=== PATIENT | male | born 1985 | race Caucasian/White ===

== ENCOUNTER 2018-04-03 09:55 | Emergency (ER) | payer OTHER ==
--- OUTSIDE RECORDS SUMMARY | 2018-04-03 10:00 | XMS REPORT | Continuity of Care Document ---
:1985 External Reference #:[id number] Author Name Aaliyah Alas Care Team Providers Name Role Phone Patient's Choice Primary Care Physician Unavailable Payers Date Identification Numbers Payment Provider Subscriber Policy Number: [id number] Amos Crum PayID: [id number] [address] [place] [address] Effective: 2008 Policy Number: [id number] Amos Crum Expires: 2014 Group Name: [id number] [address] PayID: [id number] [place] [address] Onset: 2008 Policy Number: [id number] Oly Crum PayID: [id number] [address] [place] [address] Group Name: No-Fault Oly Crum [address] [place] [address] Advance Directives Description No Information Available Problems Date Description Provider Status Onset: 01/17/2018 Localized, secondary osteoarthritis of Britton Taylor MD Active the shoulder region Onset: 01/17/2018 Injury of shoulder region Britton Taylor MD Active Onset: 01/17/2018 Disorder of shoulder Britton Taylor MD Active Onset: 10/26/2014 Cervical spondylosis without myelopathy Ubaldo Card M.D. Active Onset: 07/14/2014 Strain of rotator cuff capsule Jayjay Carmona M.D. Active Family History Date Family Member(s) Observation Comments General Diabetes General Heart Disease General Cancer General Stroke Father Diabetes Father Hypertension Father Stroke Mother Diabetes Mother Hypertension Mother Stroke Social History Type Date Description Comments Sex Unknown Lives With single and lives with his girl friend. 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 ETOH Use Rarely consumes alcohol Tobacco Use Start: Unknown Heavy tobacco smoker (more than 10 cigarettes/day) Smoking Status Reviewed: 03/26/18 Heavy tobacco smoker (more than 10 cigarettes/day) Exercise Type/Frequency Does not exercise Allergies, Adverse Reactions, Alerts Date Description Reaction Status Severity Comments 04/09/2009 Aspirin n/v Active 08/21/2014 Penicillin Active Medications Medication Date Status Form Strength Qnty SIG Indications Ordering Provider Medrol 03/26/ Active TBPK 4mg 21unit take as M75.42 Zaneb 2019 s directed by MD Claudia packaging Chantix 03/26/ Active Tablets 0.5mg X 11 53tabs take as M75.42 Zaneb Starting 2019 & 1 mg X directed MD Claudia Month Abdiel 42 No Active 03/12/ Hx Unknown Medications 2018 - 2018 No Active 01/17/ Hx Unknown Medications 2017 - 2017 Diclofenac 01/17/ Hx Tablets DR 75mg 60tabs take 1 S46.102A Zaneb Sodium 2017 - tablet MD Claudia 03/11/ twice a day 2018 with food as needed for pain Neurontin 11/03/ Hx Capsules 300mg 40caps 1 by mouth Jayjay 2014 - every night Mathew, 01/16/ at bedtime M.D. 2017 Tramadol HCL 08/21/ Hx Tablets 50mg 60tabs 1-2 tabs by Jayjay 2014 - mouth q4-6 Mathew, 01/16/ hours as M.D. 2017 needed pain Meloxicam 07/14/ Hx Tablets 7.5mg 60tabs 1 by mouth Jayjay 2014 - every day, Mathew, 10/26/ june take M.D. 2014 second tab if needed Robaxin-750 03/19/ Hx Tablets 750mg 40tabs 1-2 q8h Miguel Angel Henry 2008 - Zupruk, 04/09/ M.D. 2009 None / Hx Unknown 0000 - 2014 Medications Administered in Office Medication Date Status Form Strength Qnty SIG Indications Ordering Provider Triamcinolone 01/17/ Administered Injection Zaneb (Kenalog) 2017 MD Claudia Depomedrol 40MG 07/22/ Administered Injection Freda 2014 ANDREW Mike Immunizations Description No Information Available Vital Signs Date Vital Result Comment 03/26/2018 9:42am Height 65 inches 5'5" Weight 162.00 lb BP Systolic 118 mmHg BP Diastolic 62 mmHg Respiratory Rate 18 /min Pain Level 8 BMI (Body Mass Index) 27.0 kg/m2 03/12/2018 8:08am Height 65 inches 5'5" Heart Rate 72 /min BP Systolic 118 mmHg BP Diastolic 88 mmHg Body Temperature 97.6 F Pain Level 8 01/17/2018 9:35am Height 65 inches 5'5" Weight 162.00 lb Heart Rate 88 /min BP Systolic Sitting 128 mmHg BP Diastolic Sitting 88 mmHg Pain Level 7 BMI (Body Mass Index) 27.0 kg/m2 11/03/2014 1:58pm Height 66 inches 5'6" Weight 157.00 lb Pain Level 7 constant BMI (Body Mass Index) 25.3 kg/m2 10/26/2014 10:19am Height 66 inches 5'6" Weight 157.00 lb Heart Rate 66 /min BP Systolic Sitting 110 mmHg BP Diastolic Sitting 70 mmHg Pain Level 8 neck/l shoulder BMI (Body Mass Index) 25.3 kg/m2 10/14/2014 2:30pm Height 66 inches 5'6" Weight 175.00 lb Pain Level 6 BMI (Body Mass Index) 28.2 kg/m2 08/21/2014 10:10am Height 66 inches 5'6" Weight 175.00 lb Pain Level 6 BMI (Body Mass Index) 28.2 kg/m2 07/22/2014 4:20pm Height 66 inches 5'6" Weight 175.00 lb Pain Level 6 BMI (Body Mass Index) 28.2 kg/m2 07/14/2014 2:54pm Height 66 inches 5'6" Weight 175.00 lb Heart Rate 80 /min BP Systolic Sitting 120 mmHg BP Diastolic Sitting 78 mmHg Pain Level 6 BMI (Body Mass Index) 28.2 kg/m2 04/09/2009 8:36am Height 66 inches 5'6" Weight 165.00 lb Heart Rate 82 /min BP Systolic Sitting 110 mmHg BP Diastolic Sitting 70 mmHg BMI (Body Mass Index) 26.6 kg/m2 Results Test Date Facility Test Result H/L Range Note CBC With 06/14/2009 [facility] White Blood 8.7 CUMM 4.8-10.8 Electronic Diff [address] [place] [address] [phone] Red Cell Count 5.56 CUMM 4.6-6.2 Hemoglobin 17.7 g/dL 14.0-18.0 Hematocrit 50 % 42-52 Mean Corpuscular Volume 90 um3 80-94 Mean Corpuscular Hemoglob 32 pg High 27-31 Mean Corpuscular HGB Cone 35 g/dL 32-36 Redcell Distribution WDTH 13 % 10.5-15 Platelet Count 228 CUMM 150-450 Mean Platelet Volume 9.5 um3 7.4-10.4 Gran % 50.2 % 38-83 Lymph % 43.6 % 25-47 Mononuclear % 5.1 % 1-9 Eosinophil % 0.7 % 0-6 Basophil % 0.4 % 0-2 Abs Lymphs 3.8 1.0-4.8 Abs Mononuclear 0.4 0-0.8 Absolute Neutrophil Count 4.4 1.5-7.7 Abs Eosinophils 0.1 0-0.6 Abs Basophils 0 0-0.2 Comp Metabolic Panel 06/14/2009 [facility] Sodium 135 mmol/L 135-[address] [place] [address] [phone] Potassium 4.2 mmol/L 3.5-5.0 Chloride 103 mmol/L 101-111 Co2 (Carbon Dioxide) 26.0 mmol/L 22-32 Anion Gap 6.0 mmol/L 2-11 1 Glucose 61 mg/dL Low 70-100 2 BUN 11 mg/dL 6-24 Creatinine 0.90 mg/dL 0.50-1.40 One Over Creatinine 1.10 BUN/Creatinine Ratio 12.2 8-20 Calcium 9.7 mg/dL 8.1-9.9 3 Total Protein 7.0 GM/DL 6.2-8.1 Albumin 4.5 GM/DL 3.6-5.4 Globulin 2.5 GM/DL 2-4 Albumin/Globulin Ratio 1.8 1-3 Bilirubin Total 0.7 mg/dL 0.4-1.5 4 Alkaline Phosphatase 75 U/L 39-117 Alt (SGPT) 53 U/L 17-63 Ast (Sgot) 33 U/L 12-42 eGFR Non- 110.2 > 60 eGFR 133.3 > 60 5 Laboratory test 06/14/2009 [facility] Lipase 29 U/L 22-[address] [place] [address] [phone] CBC With 04/09/2009 [facility] White Blood 9.5 CUMM 4.8-10.8 Electronic Diff [address] [place] [address] [phone] Red Cell Count 5.65 CUMM 4.6-6.2 Hemoglobin 17.8 g/dL 14.0-18.0 Hematocrit 51 % 42-52 Mean Corpuscular Volume 91 um3 80-94 Mean Corpuscular Hemoglob 31 pg 27-31 Mean Corpuscular HGB Cone 35 g/dL 32-36 Redcell Distribution WDTH 13 % 10.5-15 Platelet Count 230 CUMM 150-450 Mean Platelet Volume 9.2 um3 7.4-10.4 Gran % 57.5 % 38-83 Lymph % 35.3 % 25-47 Mononuclear % 5.9 % 1-9 Eosinophil % 0.9 % 0-6 Basophil % 0.4 % 0-2 Abs Lymphs 3.4 1.0-4.8 Abs Mononuclear 0.6 0-0.8 Absolute Neutrophil Count 5.5 1.5-7.7 Abs Eosinophils 0.1 0-0.6 Abs Basophils 0 0-0.2 Comp Metabolic Panel 04/09/2009 [facility] Sodium 138 mmol/L 135-[address] [place] [address] [phone] Potassium 4.7 mmol/L 3.5-5.0 Chloride 104 mmol/L 101-111 Co2 (Carbon Dioxide) 28.0 mmol/L 22-32 Anion Gap 6.0 mmol/L 2-11 6 Glucose 80 mg/dL 70-100 7 BUN 8 mg/dL 6-24 Creatinine 1.20 mg/dL 0.50-1.40 One Over Creatinine 0.80 BUN/Creatinine Ratio 6.7 Low 8-20 Calcium 9.7 mg/dL 8.1-9.9 8 Total Protein 7.2 GM/DL 6.2-8.1 Albumin 4.2 GM/DL 3.6-5.4 Globulin 3.0 GM/DL 2-4 Albumin/Globulin Ratio 1.4 1-3 Bilirubin Total 0.7 mg/dL 0.4-1.5 9 Alkaline Phosphatase 87 U/L 39-117 Alt (SGPT) 83 U/L High 17-63 Ast (Sgot) 37 U/L 12-42 eGFR Non- 79.1 > 60 eGFR 95.7 > 60 10 Urinalysis 04/09/2009 [facility] Ua Color YELLOW Yellow [address] [place] [address] [phone] Appearance-Urine CLEAR Clear Specific [place]-Ur 1.019 1.010-1.030 Esterase-Urine NEGATIVE Negative Nitrite NEGATIVE Negative Iztcrcruuray-Th-SDB NEGATIVE Negative Protein-Urine NEGATIVE Negative PH-Urine 6.0 5-9 Blood-Urine NEGATIVE Negative Ketones-Urine NEGATIVE Negative Bilirubin-Ur NEGATIVE Negative Glucose-Urine NEGATIVE Negative Laboratory test 04/09/2009 [facility] Cholesterol 192 mg/dL Less Than [address] [place] [address] [phone] 1 Anion gap measurement may be of limited value in the presence of any alkalosis, especially in a combined acid base disorder. . 2 Note change in reference range as of 09/26/07. The change was based on recommendations from the [place] [employer]. 3 Please note change in reference range effective 07 . 4 A metabolite of Naproxen, O-desmethylnaproxen, has been shown to interfere with the Jendrassik-Lynn method for measuring total bilirubin. Samples from patients who have taken Naproxen have shown spurious elevation in total bilirubin levels. 5 Because ethnic data is not always readily available, this report includes an eGFR for both -Americans and non- Americans. The National Kidney Disease Education Program (NKDEP) does not endorse the use of the MDRD equation for patients that are not between the ages of 18 and 70, are , have extremes of body size, muscle mass, or nutritional status, or are non- or non-. According to the National Kidney Foundation, irrespective of diagnosis, the stage of the disease is based on the level of kidney function: Stage Description GFR(mL/min/1.73 m(2)) 1 Kidney damage with normal or decreased GFR 90 2 Kidney damage with mild decrease in GFR 60-89 3 Moderate decrease in GFR 30-59 4 Severe decrease in GFR 15-29 5 Kidney failure <15 (or dialysis) 6 Anion gap measurement may be of limited value in the presence of any alkalosis, especially in a combined acid base disorder. . 7 Note change in reference range as of 09/26/07. The change was based on recommendations from the [place] [employer]. 8 Please note change in reference range effective 07 . 9 A metabolite of Naproxen, O-desmethylnaproxen, has been shown to interfere with the Jendrassik-[place] method for measuring total bilirubin. Samples from patients who have taken Naproxen have shown spurious elevation in total bilirubin levels. 10 Because ethnic data is not always readily available, this report includes an eGFR for both -Americans and non- Americans. The National Kidney Disease Education Program (NKDEP) does not endorse the use of the MDRD equation for patients that are not between the ages of 18 and 70, are , have extremes of body size, muscle mass, or nutritional status, or are non- or non-. According to the National Kidney Foundation, irrespective of diagnosis, the stage of the disease is based on the level of kidney function: Stage Description GFR(mL/min/1.73 m(2)) 1 Kidney damage with normal or decreased GFR 90 2 Kidney damage with mild decrease in GFR 60-89 3 Moderate decrease in GFR 30-59 4 Severe decrease in GFR 15-29 5 Kidney failure <15 (or dialysis) 11 CHOLESTEROL INTERPRETATION: Desirable: Less than 200 MG/DL Borderline-High Risk: 200-239 MG/DL High-Risk: 240 MG/DL and over Procedures Date Code Description Status 01/17/2018 Inject/Drain Joint/Bursa Major W/O US Completed 07/22/2014 Inject/Drain Joint/Bursa Major W/O US Completed 05/12/2008 22191 Visual funct screen test, automated Completed 05/12/2008 56045 Pure Tone-Air Condition Only Completed Encounters Type Date Location Provider Dx Diagnosis Office Visit 03/12/2018 Orthopedic Britton Taylor MD M75.42 Impingement 8:00a [facility] syndrome of left shoulder M47.812 Spondylosis w/o myelopathy or radiculopathy, cervical region S46.102A Unsp injury of musc/fasc/tend long hd bicep, left arm, init M19.212 Secondary osteoarthritis, left shoulder Office Visit 01/17/2018 Orthopedic Britton Taylor, M47.812 Spondylosis w/o 9:00a [facility] myelopathy or [facility] radiculopathy, cervical region M75.42 Impingement syndrome of left shoulder S46.102A Unsp injury of musc/fasc/tend long hd bicep, left arm, init M19.212 Secondary osteoarthritis, left shoulder Office Visit 11/03/2014 Orthopedic Freda M47.812 Spondylosis w/o 2:00p [facility] Of ANDREW Mike myelopathy or C.M.AJem radiculopathy, cervical region M25.512 Pain in left shoulder Office Visit 10/26/2014 Neurosurgery Ubaldo M47.812 Spondylosis w/o 10:30a Services Of Adam Card M.D. myelopathy or radiculopathy, cervical region Office Visit 10/14/2014 Orthopedic Freda 719.41 Pain Joint Shoulder 2:30p [facility] ANDREW Mike Region [facility] 722.6 Intervertebral Disc Degeneration Unspec Site Office Visit 08/21/2014 10:15a Orthopedic Freda 719.41 Pain Joint [facility] ANDREW Mike Shoulder Region [facility] 727.3 Bursitis Other 723.0 Stenosis Spinal Cervical Region Office Visit 07/22/2014 4:30p Orthopedic Freda 727.3 Bursitis Other Services Of C.MJemAANDREW Rosenthal 726.19 Shoulder Disorders Other Spec 715.11 Osteoarthrosis Localized Prim Shoulder Region Office Visit 07/14/2014 3:00p Orthopedic Jayjay Carmona, 840.4 Sprains & Services Of Arianne Strains Rotator C.M.AJem Cuff (Capsule) 719.41 Pain Joint Shoulder Region Office Visit 04/09/2009 8:30a DO Not Use [facility] Loc Massey, 790.6 Abnormal Blood AT Steve Acuña Chemistry Other 724.5 Backache Unspec Plan of Treatment Future Appointment(s):04/03/2018 2:20 pm - Ubaldo Card M.D. at [facility]surgery [facility]05/07/2018 9:00 am - Britton Taylor MD at [facility]04/03/2018 11:00 am - Jb Flores M.D. at [facility]ology [facility]03/26/2018 - Britton Taylor, MDM75.42 Impingement syndrome of left shoulderNew Medication:Medrol 4 mg - take as directed by packagingChantix Starting Month Abdiel 0.5 mg X 11 & 1 mg X 42 - take as directedFollow up:Follow up: 6 weeks pls helppt make appt with family medicine or IM to establish careM47.812 Spondylosis without myelopathy or radiculopathy, cervical reS46.102A Unspecified injury of muscle, fascia and tendon of long head
--- OUTSIDE RECORDS SUMMARY | 2018-04-03 10:00 | XMS REPORT | Continuity of Care Document ---
:1985 External Reference #:[id number] Author Name Robyn Armenta Care Team Providers Name Role Phone Patient's Choice Primary Care Physician Unavailable Payers Type Date Identification Numbers Payment Provider Subscriber Policy Number: [id number] Amos Crum PayID: [id number] [address] [place] [address] Effective: 2008 Policy Number: [id number] Amos Crum Expires: 2014 Group Name: [id number] [address] PayID: [id number] [place] [address] Onset: 2008 Policy Number: [id number] Oly Crum PayID: [id number] [address] [place] [address] Group Name: No-Fault Oly Crum [address] [place] [address] Advance Directives Description No Information Available Problems [...] M.D. Active Family History Date Family Member(s) Problem(s) Comments General Diabetes General Heart Disease General Cancer General Stroke Father Diabetes Father Hypertension Father Stroke Mother Diabetes Mother Hypertension Mother Stroke Social History Type Date Description Comments Sex Unknown Lives With single and lives with his girl friend. 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 ETOH Use Rarely consumes alcohol Tobacco Use Start: Unknown Heavy tobacco smoker (more than 10 cigarettes/day) Smoking Status Reviewed: 03/12/18 Heavy tobacco smoker (more than 10 cigarettes/day) Exercise Type/Frequency Does not exercise Allergies, Adverse Reactions, Alerts Date Description Reaction Status Severity Comments 04/09/2009 Aspirin n/v Active 08/21/2014 Penicillin Active Medications Medication Date Status Form Strength Qnty SIG Indications Ordering Provider No Active Active Unknown Medications 019 No Active Hx Unknown Medications 018 - [address] 75mg 60tabs take 1 S46.102A Zaneb Sodium 018 - tablet MD Claudia twice a 019 day with food as needed for pain Neurontin Hx Capsules 300mg 40caps 1 by Jayjay 015 - mouth Mathew, every M.D. 018 night at bedtime Tramadol HCL Hx Tablets 50mg 60tabs 1-2 tabs Jayjay 015 - by mouth Mathew, q4-6 M.D. 018 hours as needed pain Meloxicam Hx Tablets 7.5mg 60tabs 1 by Jayjay 015 - mouth Mathwe, every M.D. 015 day, may take second tab if needed Robaxin-750 Hx Tablets 750mg 40tabs 1-2 q8h Miguel Angel Henry 009 - Zupruk, M.D. 010 None 0000/0 Hx Unknown 000 - 015 Medications Administered in Office Medication Date Status Form Strength Qnty SIG Indications Ordering Provider Triamcinolone 01/17/ Administered Injection Zaneb (Kenalog) 2017 MD Claudia Depomedrol 40MG 07/22/ Administered Injection Freda 2014 ANDREW Mike Immunizations Description No Information Available Vital Signs Date Vital Result Comment 03/12/2018 8:08am Height 65 inches 5'5" Heart [...] Result H/L Range Note CBC With 06/14/2009 [facility] White Blood 8.7 CUMM 4.8-10.8 Electronic Diff [address] [place] [address] [phone] Red Cell Count 5.56 CUMM 4.6-6.2 Hemoglobin [...] Basophils 0 0-0.2 Comp Metabolic Panel 06/14/2009 [facility] Sodium 135 mmol/L 135-[address] [place] [address] [phone] Potassium 4.2 mmol/L 3.5-5.0 Chloride 103 mmol/L [...] 133.3 > 60 5 Laboratory test 06/14/2009 [facility] Lipase 29 U/L 22-[address] [place] [address] [phone] CBC With 04/09/2009 [facility] White Blood 9.5 CUMM 4.8-10.8 Electronic Diff [address] [place] [address] [phone] Red Cell Count 5.65 CUMM 4.6-6.2 Hemoglobin [...] Basophils 0 0-0.2 Comp Metabolic Panel 04/09/2009 [facility] Sodium 138 mmol/L 135-145 [address] [place] [address] [phone] Potassium 4.7 mmol/L 3.5-5.0 Chloride 104 mmol/L [...] eGFR 95.7 > 60 10 Urinalysis 04/09/2009 [facility] Ua Color YELLOW Yellow [address] [place] [address] [phone] Appearance-Urine CLEAR Clear Specific [place]-Ur 1.019 1.010-1.030 Esterase-Urine NEGATIVE Negative Nitrite NEGATIVE Negative Flgyxrduivtd-Rk-YKT NEGATIVE Negative Protein-Urine NEGATIVE Negative PH-Urine 6.0 5-9 Blood-Urine NEGATIVE Negative Ketones-Urine NEGATIVE Negative Bilirubin-Ur NEGATIVE Negative Glucose-Urine NEGATIVE Negative Laboratory test 04/09/2009 [facility] Cholesterol 192 mg/dL Less Than [address] [place] [id number] [phone] 1 Anion gap measurement may be of limited value in the presence of any alkalosis, especially in a combined acid base disorder. . 2 Note change in reference range as of 09/26/07. The change was based on recommendations from the [place] [employer]. 3 Please note change in reference range effective 07 . 4 A metabolite of Naproxen, O-desmethylnaproxen, has been shown to interfere with the Jendrassik-[place] method for measuring total bilirubin. Samples from [...] change was based on recommendations from the [place] [employer]. 8 Please note change in [...] 01/17/2018 Inject/Drain Joint/Bursa Major W/O US Completed 07/22/201413500 Inject/Drain Joint/Bursa Major W/O US Completed 05/12/2008 80127 Visual funct screen test, automated Completed 05/12/2008 00436 Pure Tone-Air Condition Only Completed Encounters Type Date Location Provider Dx Diagnosis Office Visit 03/12/2018 Orthopedic Britton Taylor MD M75.42 Impingement 8:00a [facility] syndrome of left shoulder M47.812 Spondylosis w/o myelopathy or radiculopathy, cervical region S46.102A Unsp injury of musc/fasc/tend long hd bicep, left arm, init M19.212 Secondary osteoarthritis, left shoulder Office Visit 01/17/2018 Orthopedic Britton Taylor M47.812 Spondylosis w/o 9:00a Services Of myelopathy or [facility]. radiculopathy, cervical region M75.42 Impingement syndrome of left shoulder S46.102A Unsp injury of musc/fasc/tend long hd bicep, left arm, init M19.212 Secondary osteoarthritis, left shoulder Office Visit 11/03/2014 Orthopedic Freda M47.812 Spondylosis w/o 2:00p Services Of ANDREW Mike myelopathy or C.M.A. radiculopathy, cervical region M25.512 Pain in left [...] Joint Services Of ANDREW Mike Shoulder Region C.M.AJem 727.3 Bursitis Other 723.0 Stenosis Spinal Cervical Region Office Visit 07/22/2014 4:30p Orthopedic Freda 727.3 Bursitis Other Services Of C.MJemAANDREW Rosenthal 726.19 Shoulder Disorders Other Spec 715.11 Osteoarthrosis Localized Prim Shoulder Region Office Visit 07/14/2014 3:00p Orthopedic Jayjay Carmona, 840.4 Sprains & Services Of Arianne Strains Rotator C.M.AJem Cuff (Capsule) 719.41 Pain Joint Shoulder Region Office Visit 04/09/2009 8:30a DO Not Use [facility] [address] Loc [place], 790.6 Abnormal Blood AT [facility] M.Alpa Chemistry Other 724.5 Backache Unspec Plan of Treatment Future Appointment(s):04/03/2018 11:00 am - Jb Flores M.D. at [facility] [address]03/12/2018 - Britton Taylor, MDM75.42 Impingement syndrome of left shoulderNew Xrays:MRI Shoulder Left W/O, Ordered: 03/12/18Follow up:Follow up: after MRI Pt has referral in for dania. can you please make an appointment for him.M47.812 Spondylosis without myelopathy or radiculopathy, cervical reS46.102A Unspecified injury of muscle, fascia and tendon of long headM19.212 Secondary osteoarthritis, left shoulder
[2018-04-03 10:01] VITALS: BP 116/77
--- NOTE | 2018-04-03 12:50 | UC ---
Eye Complaint HPI - HPI Summary HPI Summary: WOKE UP THIS MORNING WTH SWOLLEN RIGHT UPPER EYELID. NO VISUAL DISTURBANCES. NO PAIN WITH EOM. NO FB SENSATION. HAS HAD A COUGH FOR A DAY OR 2. ALSO THINKS HE HAS A KIDNEY INFECTION HE REPORTS BILATERAL FLANK PAIN. STATES IT IS NOT "BACK PAIN". DENIES DYSURIA OR HEMATURIA. NO PENILE D/C. NOT CONCERNED ABOUT STD. - History of Current Complaint Chief Complaint: UCGeneralIllness Stated Complaint: HEADACHE,COUGH Time Seen by Provider: 04/03/18 12:15 Hx Obtained From: Patient Onset/Duration: Sudden Onset, Lasting Hours, Still Present Timing: Constant Severity Initially: Moderate Severity Currently: Moderate Pain Intensity: 6 Pain Scale Used: 0-10 Numeric Location of Injury: Eye Lid (upper) - RIGHT Aggravating Factor(s): Nothing Alleviating Factor(s): Nothing Associated Signs And Symptoms: Positive: Swelling. Negative: Photophobia, Drainage (Clear), Drainage (Purulent), Vision Impairment Bilateral, Fever - Allergies/Home Medications Allergies/Adverse Reactions: Allergies Allergy/AdvReac Type Severity Reaction Status Date / Time aspirin Allergy Vomiting Verified 04/03/18 10:03 Penicillins Allergy makes me Verified 04/03/18 10:03 feel funniy Home Medications: Home Medications Varenicline Tartrate [Chantix] 1 mg PO DAILY 04/03/18 [History Confirmed ] PMH/Surg Hx/FS Hx/Imm Hx Respiratory History: Asthma - Surgical History Surgical History: Yes Surgery Procedure, Year, and Place: WISDOM TEETH, - Family History Known Family History: Positive: Non-Contributory - Social History Alcohol Use: Rare Substance Use Type: None Smoking Status (MU): Heavy Every Day Tobacco Smoker Type: Cigarettes Amount Used/How Often: 1-2 PPD Length of Time of Smoking/Using Tobacco: 12 YEARS Have You Smoked in the Last Year: Yes Review of Systems All Other Systems Reviewed And Are Negative: Yes Constitutional: Positive: Negative Eyes: Positive: Other - RIGHT UPPER EYELID SWOLLEN. Negative: Blurred Vision, Drainage, Eye Redness, Photophobia Respiratory: Positive: Cough Cardiovascular: Positive: Negative Gastrointestinal: Positive: Negative Genitourinary: Positive: Other - FLANK PAIN Physical Exam Triage Information Reviewed: Yes Appearance: Well-Appearing, No Pain Distress, Well-Nourished Vital Signs: Initial Vital Signs Temp 98 F 02/27/19 09:59 Pulse 79 04/03/18 09:59 Resp 18 04/03/18 09:59 BP 116/77 04/03/18 09:59 Pulse Ox 100 04/03/18 09:59 Laboratory Tests 04/03/18 12:31 POC Urine Color Yellow POC Urine Clarity Clear POC Urine pH 7.0 POC Ur Specif Harrison 1.015 POC Urine Protein Negative POC Ur Glucose (UA) Negative POC Urine Ketones Negative POC Urine Blood Negative POC Urine Nitrite Negative POC Urine Bilirubin Negative POC Urine Urobilinogen 0.2 POC U Leukocyte Esteras Negative Vital Signs Reviewed: Yes Eyes: Positive: Conjunctiva Clear, Other: - RIGHT UPPER EYELID EDEMA AND ERYTHEMA. Negative: Discharge ENT: Positive: Hearing grossly normal Neck: Positive: Supple, Nontender, No Lymphadenopathy Respiratory Exam: Normal Cardiovascular Exam: Normal Abdomen Description: Positive: Soft Musculoskeletal: Positive: No Edema Neurological: Positive: Alert Psychological: Positive: Age Appropriate Behavior Skin: Negative: Rashes Eye Complaint Course/Dx - Differential Dx/Diagnosis Provider Diagnosis: Blepharitis of right upper eyelid Discharge - Sign-Out/Discharge Documenting (check all that apply): Patient Departure All imaging exams completed and their final reports reviewed: No Studies - Discharge Plan Condition: Stable Disposition: HOME Prescriptions: Erythromycin OPHTH.OINT* [Ilotycin OPHTH.OINT*] 1 applic RIGHT EYE QID #1 tube Patient Education Materials: Blepharitis (ED) Referrals: [facility] [Outside] - If Needed Jb Montes MD [Medical Doctor] - If Needed Additional Instructions: BLEPHARITIS What is blepharitis? Blepharitis is inflammation of the eyelids that causes redness and swelling of the lids. The symptoms might get better and then come back. But blepharitis rarely causes problems with your vision. Blepharitis is more common in people who have certain skin conditions, including : Rosacea - This causes redness and raised, red bumps on the cheeks, nose, chin, forehead, or eyelids. Seborrhea This causes redness, scaly patches, and itching, mostly on the scalp. Dandruff is a mild form of seborrhea. What are the symptoms of blepharitis? The symptoms include: Eyelids that are red, swollen, and itchy A gritty or burning feeling in the eyes Red eyes Crusty, matted eyelashes in the morning Flaking or scaling of the eyelid skin Is there a test for blepharitis? No. There is no test. But your doctor or nurse should be able to tell if you have it by learning about your symptoms and doing an exam. Is there anything I can do on my own to feel better? Yes. You can: Put warm, wet pressure on your eyes Wet a clean wash cloth with warm (not scalding hot) water and put it over your eyes. When the wash cloth cools, reheat it with warm water and put it back over your eyes. Repeat these steps for 5 minutes, 2 to 4 times a day. Gently rub your eyelids Do this right after putting warm, wet pressure on your eyes (see above). Use the washcloth or a clean fingertip to gently rub your eyelid in small circles. Wash your eyelids Use plain warm water or warm water with a drop of baby shampoo on a clean washcloth, gauze pad, or cotton swab. Gently clean any crusty material off the eyelashes and eyelids. Do not rub hard or you can cause more irritation. You can also use [id number] eyelid scrubs and pads. How is blepharitis treated? If the treatments you do on your own do not help, your doctor might prescribe: An antibiotic cream or ointment to put on your eyelids FOLLOW-UP WITH AN EYE DOCTOR IF YOUR SYMPTOMS DO NOT IMPROVE OR IF YOU DEVELOP ANY VISUAL DISTURBANCES OR PAIN IN THE EYEBALL ITSELF. YOUR URINE TEST TODAY WAS NORMAL. IF YOU ARE WORRIED ABOUT YOUR KIDNEYS YOU NEED TO FOLLOW-UP WITH A PCP. CALL THE NUMBER BELOW FOR ASSISTANCE IN ESTABLISHING WITH A PCP An additional resource available to assist in finding the appropriate physician for your health care needs is the [facility] ([facility]). You may contact them by calling [phone]. - Billing Disposition and Condition Condition: STABLE Disposition: Home
== END 2018-04-03 12:52 | disposition home or self-care (01) ==
LOC: UCEAST 09:55
DX: H01.001 Unspecified blepharitis right upper eyelid (principal); R05 Cough; R10.9 Unspecified abdominal pain; F17.210 Nicotine dependence, cigarettes, uncomplicated; J45.909 Unspecified asthma, uncomplicated; Z88.0 Allergy status to penicillin; Z88.8 Allergy status to other drugs, medicaments and biological substances
CPT/HCPCS: 81003; 99212; G0463